=== PATIENT | male | born 2000 | race American Indian/Alaskan Native ===

== ENCOUNTER 2021-03-28 09:13 | Emergency (ER) | payer SELFPAY ==
[2021-03-28 09:49] VITALS: BP 139/77
--- NOTE | 2021-03-28 10:43 | Emergency Department Report ---
- General Chief complaint: Weakness Stated complaint: DIZZY Time Seen by Provider: 03/28/21 09:34 Source: patient Mode of arrival: Ambulatory Limitations: No Limitations - History of Present Illness Initial comments: 21-year-old male, history of hypertension, presents to ED with generalized weakness x1 month. Patient states that symptoms began after taking the first dose of his Pfizer COVID-19 vaccine. Patient states he has been generally tired since then. He also reports that he has had some lightheadedness. 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 Patient works 7 days a week, no days off. He also reports that he donates plasma twice a week. Patient denies any fever, headache, cough, abdominal pain. Patient states he had one episode of vomiting 2 days ago and one episode of shortness of breath a couple of days ago as well. He denies any difficulty breathing at this time. MD Complaint: lack of energy -: month(s) (1) Location: generalized Severity: moderate Consistency: constant Improves with: none Worsens with: none Associated Symptoms: nausea/vomiting, shortness of breath. denies: chest pain, fever/chills, headaches, syncope - Related Data Home Medications Medication Instructions Recorded Confirmed Last Taken amLODIPine 5 mg PO QAM 03/28/21 03/28/21 03/28/21 5 mg Allergies Allergy/AdvReac Type Severity Reaction Status Date / Time No Known Allergies Allergy Verified 03/28/21 09:57 ED Review of Systems ROS: Stated complaint: DIZZY Other details as noted in HPI Comment: All other systems reviewed and negative Constitutional: malaise, weakness. denies: chills, fever Respiratory: shortness of breath. denies: cough Cardiovascular: denies: chest pain Gastrointestinal: vomiting. denies: abdominal pain, nausea, diarrhea Neurological: denies: headache ED Past Medical Hx - Past Medical History Previous Medical History?: Yes Hx Hypertension: Yes - Social History Smoking Status: Current Some Day Smoker - Medications Home Medications: Home Medications Medication Instructions Recorded Confirmed Last Taken Type amLODIPine 5 mg PO QAM 03/28/21 03/28/21 03/28/21 History 5 mg ED Physical Exam - General Limitations: No Limitations General appearance: alert, in no apparent distress - Head Head exam: Present: atraumatic, normocephalic - Eye Eye exam: Present: normal appearance, EOMI - ENT ENT exam: Present: mucous membranes moist - Neck Neck exam: Present: normal inspection - Respiratory Respiratory exam: Present: normal lung sounds bilaterally. Absent: respiratory distress - Cardiovascular Cardiovascular Exam: Present: regular rate, normal rhythm - GI/Abdominal GI/Abdominal exam: Present: soft. Absent: distended, tenderness - Extremities Exam Extremities exam: Present: normal inspection - Neurological Exam Neurological exam: Present: alert, oriented X3, CN II-XII intact. Absent: motor sensory deficit - Psychiatric Psychiatric exam: Present: normal affect, normal mood - Skin Skin exam: Present: warm, dry, intact, normal color ED Course Vital Signs 03/28/21 03/28/21 03/28/21 09:24 09:38 09:39 Temperature 98.2 F 98.0 F Pulse Rate 77 73 Pulse Rate [ Sitting] Respiratory 18 14 Rate Blood Pressure 139/77 Blood Pressure 131/78 [Right] O2 Sat by Pulse 98 99 99 Oximetry 03/28/21 03/28/21 11:02 12:19 Temperature 97.9 F Pulse Rate Pulse Rate [ 60 Sitting] Respiratory Rate Blood Pressure Blood Pressure [Right] O2 Sat by Pulse Oximetry - Reevaluation(s) Reevaluation #1: 03/28/21 12:13 Lab contacted due to CBC still not resulted. ED Medical Decision Making - Lab Data Result diagrams: 03/28/21 10:46 03/28/21 10:46 - EKG Data -: EKG Interpreted by [facility] EKG shows normal: sinus rhythm, axis, intervals, QRS complexes, ST-T waves Rate: normal - EKG Data Interpretation: no acute changes - Medical Decision Making 21-year-old male presents to ED with 1 month history of generalized weakness, malaise, lightheadedness. Work-up is unremarkable. Labs are normal. Vital signs are stable. EKG shows no acute changes. Patient advised to follow-up on an outpatient basis. Return precautions given. - Differential Diagnosis Thyroid abnormality, dehydration, anemia Critical care attestation.: If time is entered above; I have spent that time in minutes in the direct care of this critically ill patient, excluding procedure time. ED Disposition Clinical Impression: Generalized weakness Disposition: 01 HOME / SELF CARE / HOMELESS Is pt being admited?: No Condition: Stable Instructions: Fatigue, Weakness Referrals: PRIMARY CARE, [Primary Care Provider] - 3-5 Days [facility] [Provider Group] - 3-5 Days Forms: Work/School Release Form(ED) Time of Disposition: 12:15
[2021-03-28 11:28] LABS: Alanine Aminotransferase 26 units/L (7-56); Albumin 3.7 g/dL (3.9-5); BUN/Creatinine Ratio 17; Blood Urea Nitrogen 17 mg/dL (9-20); Calcium 8.6 mg/dL (8.4-10.2); Hemolysis Index 12
[2021-03-28 11:29] LABS: Bilirubin,Direct < 0.2 mg/dL (0-0.2)
[2021-03-28 12:14] LABS: Basophils % (Auto) 0.4 % (0.0-1.8); Eosinophils # (Auto) 0.1 K/mm3 (0.0-0.4); Eosinophils % (Auto) 1.7 % (0.0-4.3); Hematocrit 45.8 % (35.5-45.6); Hemoglobin 15.1 gm/dl (11.8-15.2); Lymphocytes # (Auto) 2.3 K/mm3 (1.2-5.4); Mean Corpuscular HGB Conc 33 % (32-34); Mean Corpuscular Volume 92 fl (84-94); Monocytes # (Auto) 0.5 K/mm3 (0.0-0.8); Monocytes % (Auto) 9.2 % (0.0-7.3); Platelet Count 181 K/mm3 (140-440); Red Cell Distribution Width 14.7 % (13.2-15.2)
--- NOTE | 2021-03-30 17:28 | Electrocardiograph Report ---
[facility] Test Date: 2021-03-28 Test Time: 10:57:00 Pat Name: PAULINE FLOYD Department: Room: Gender: M Biochemistry Technologist: NURSE : 2000 Requested By: ANGELA MEDRANO Order Number: [id number] Reading MD: Darling Arita Measurements Intervals [place] Rate: 59 P: 51 AR: 165 QRS: 71 QRSD: 92 T: 19 QT: 389 QTc: 387 Interpretive Statements Sinus bradycardia ST elev, probable normal early repol pattern No previous ECG available for comparison Electronically Signed On 03-30-2021 17:27:56 EDT by Darling Arita
== END 2021-03-28 12:21 | disposition home or self-care (01) ==
LOC: ED 09:13
DX: R53.1 Weakness (principal); I10 Essential (primary) hypertension; F17.200 Nicotine dependence, unspecified, uncomplicated
CPT/HCPCS: 36415; 80048; 80076; 84443; 84484; 85025; 93005; 99283